=== PATIENT | female | born 1970 | race Caucasian/White ===

== ENCOUNTER 2023-03-18 11:13 | Emergency (ER) | payer OTHER ==
[2023-03-18] MEDS ORDERED: Cephalexin 250 MG CAP ONE (12:24)
== END 2023-03-18 12:31 | disposition home or self-care (01) ==
LOC: BURERS 11:13
DX: T81.30XA Disruption of wound, unspecified, initial encounter (principal); T81.49XA Infection following a procedure, other surgical site, initial encounter; I10 Essential (primary) hypertension; E11.9 Type 2 diabetes mellitus without complications
CPT/HCPCS: 99283

== ENCOUNTER 2025-11-04 10:04 | Emergency (ER) | payer MEDICARE, OTHER ==
[2025-11-04] MEDS ORDERED: Ibuprofen 200 MG TAB ONE (10:58)
[2025-11-04] MEDS ORDERED: predniSONE 20 MG TAB ONE (10:58)
[2025-11-04] MEDS ORDERED: Lisinopril 20 MG TAB ONE (10:58)
== END 2025-11-04 11:47 | disposition home or self-care (01) ==
LOC: BURERS 10:04
DX: M54.50 Low back pain, unspecified (principal); I10 Essential (primary) hypertension; E78.5 Hyperlipidemia, unspecified; E11.9 Type 2 diabetes mellitus without complications; Z79.84 Long term (current) use of oral hypoglycemic drugs; Z79.899 Other long term (current) drug therapy; Z79.4 Long term (current) use of insulin
CPT/HCPCS: 99283; J7512